=== PATIENT | male | born 1985 | race Two or more races ===

== ENCOUNTER 2017-05-26 05:50 | Day surgery (SDC) | payer OTHER ==
--- NOTE | 2017-05-25 21:28 | Pre-Procedure Note/Attestation ---
Pre-Procedure Note/Attestation Complete Prior to Procedure Planned Procedure: not applicable Procedure Narrative: 1. Open reduction internal fixation nasal fracture 2. Septoplasty 3. Submucous resection right inferior turbinate 4. Submucous resection left inferior turbinate Indications for Procedure Pre-Operative Diagnosis: 1. Nasal fracture 2. Nasal septal deviation 3. Hypertrophied right inferior turbinate 4. 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 I attest that, if there was a reasonable possibility of needing a blood transfusion, the patient (or the patient's legal sales representative girls' apparel) was given the [place] [employer] standardized written summary, pursuant to the [place]inn Blood Safety Act ([place] Health and Safety Code # 1645, as amended). I attest that I re-evaluated the patient just prior to the surgery and that there has been no change in the patient's H&P provided by Dr. Hamilton along with labs. I will co-sign his H/P. KEVIN SERRANO May 25, 2017 21:28
--- NOTE | 2017-05-25 21:30 | Brief Operative Note ---
Immediate Post Operative Note Operative Note Chief Complaint: Nasal deformity, nasal airway obstruction Pre-op Diagnosis: 1. Nasal fracture 2. Nasal septal deviation 3. Hypertrophied right inferior turbinate 4. Hypertrophied left inferior turbinate Procedure: 1. Open reduction internal fixation nasal fracture 2. Septoplasty 3. Submucous resection right inferior turbinate 4. Submucous resection left inferior turbinate Post-op Diagnosis: same as pre-op Surgeon: Kevin Serrano MD Prime Broker: none Additional Surgeons: none Anesthesiologist: Tereso Anesthesia: general Specimen: none Complications: none Condition: stable Fluids: D5LR Estimated Blood Loss: volume - 50cc Drains: none Packing: Stamberger nasal gel Implant(s) used?: No KEVIN SERRANO May 25, 2017 21:30
--- NOTE | 2017-05-25 21:34 | Discharge Instructions ---
Discharge Instructions Discharge Instructions Follow up with: 06/02/17 Diet: regular Resume Normal Activity?: No Activity: light activity Pneumonia Vaccine: pt refused vaccine Influenza Vaccine (Nov to Apr): pt refused vaccine Follow Up Orders Pt has printed instructions, along with Rx for Amox and [place], given to him at his pre op visit in my office 05/18/17. Return to Work/School on: Jun 09, 2017 Special Instructions ice to face x 48 hours For Surgical Patients Dressing Care: may change May shower: No Contact your physician for: bleeding, pain, tenderness, redness, swelling, yellowish discharge in the op. site For Congestive Heart Failure Reminder Report to your physician any weight gain of 5 pounds or more in one week. KEVIN SERRANO May 25, 2017 21:34
[2017-05-26] VITALS (11 sets, daily range): BP systolic 126–138; BP diastolic 73–93
[~2017-05-26] VITALS: Ht 165.1 cm; Wt 81.6 kg
[~2017-05-26 05:50] MED LIST: BUSPAR10 MG ORAL; CIALIS2.5 MG ORAL; KLONOPIN0.5 MG ORAL; MOBIC15 MG ORAL; REQUIP0.5 MG ORAL; ROBAXIN500 MG PO; SERTRALINE HCL100 MG PO
[2017-05-26] MEDS ORDERED: EPINEPHrine 1mg/1ml Amp ONE (06:44)
[2017-05-26] MEDS ORDERED: Cocaine HCl 4% 4ml vial TOPIC ONE (06:44)
[2017-05-26] MEDS ORDERED: Bupivacaine 0.5% Inj 30 ml vial INJ ONE (06:44)
[2017-05-26] MEDS ORDERED: Lidocaine 1% 10mg/ml/EPI 0.01mg/ml 50ml INJ ONE (06:44)
[2017-05-26] MEDS ORDERED: ceFAZolin sod 1 GM in D5W 55 ML IVPB ONE (07:45)
[2017-05-26] MEDS ORDERED: Dexamethasone 4mg/ml vial IVP ONE ×2 (07:45→09:00)
[2017-05-26] MEDS ORDERED: LR 1000ml 1,000 ML IVLG SCH ×2 (08:18→09:38)
--- NOTE | 2017-05-26 08:23 | Anethesia Preoperative Eval ---
Anesthesia Pre-op PMH/ROS General Date of Evaluation: May 26, 2017 Time of Evaluation: 07:35 Anesthesiologist: Tereso ASA Score: ASA 2 Mallampati Score Class I : Soft palate, uvula, fauces, pillars visible Class II: Soft palate, uvula, fauces visible Class III: Soft palate, base of uvula visible Class IV: Only hard plate visible Mallampati Classification: Class II Surgeon: Bc Diagnosis: Nasal fracture Surgical Procedure: ORIF, SMR, septoplasty, turbinectomies Family History: no anesthesia problems Allergies: Coded Allergies: No Known Allergies (Unverified , 05/25/17) Medications: see eMAR Past Medical History Cardiovascular: Denies: HTN, CAD, DE, valve dz, arrhythmia, other Pulmonary: Denies: asthma, COPD, ALEXIS, other Gastrointestinal/Genitourinary: Reports: GERD; Denies: CRI, ESRD, other Neurologic/Psychiatric: Reports: depression/anxiety; Denies: dementia, CVA, TIA, other Endocrine: Denies: DM, hypothyroidism, steroids, other HEENT: Denies: cataract (L), cataract (R), glaucoma, NAKNEK (L), NAKNEK (R), other Hematology/Immune: Denies: anemia, DVT, bleeding disorder, other Musculoskeletal/Integumentary: Denies: OA, RA, DJD, DDD, edema, other PMH Narrative: GERD PSxH Narrative: Multiple fractures from a 30' fall including ankle ORIF Anesthesia Pre-op Phys. Exam Physician Exam Last Vital Signs Date Time Temp Pulse Resp B/P (MAP) Pulse Ox O2 Delivery O2 Flow Rate FiO2 05/26/17 06:26 98.0 88 18 138/80 99 Room Air 98.0 Constitutional: NAD Neurologic: CN 2-12 intact Cardiovascular: RRR, no M/R/G Respiratory: CTA Gastrointestinal: S/NT/ND Airway Exam Mallampati Score: Class II MO: full ROM: full Teeth: intact Anesthesia Pre-op A/P Labs WNL Studies Pre-op Studies: EKG - NSR Risk Assessment & Plan Assessment: Healthy male for ORIF nasal fracture Plan: GA, LMA Status Change Before Surgery: No Pre-Antibiotics Drug: Ancef Given Within 1 Hr of Incision: Yes Time Given: 07:45 Luis Rider MD May 26, 2017 08:23
--- NOTE | 2017-05-26 08:25 | Immediate Post-Op Evaluation ---
Immediate Post-Op Evalulation Immediate Post-Op Evalulation Procedure: ORIF nasal fracture, septoplasty, SMR, turbinectomies Date of Evaluation: May 26, 2017 Time of Evaluation: 09:00 IV Fluids: 500 Estimated Blood Loss: 50 Blood Pressure Systolic: 136 Blood Pressure Diastolic: 83 Pulse Rate: 91 Respiratory Rate: 20 O2 Sat by Pulse Oximetry: 100 Temperature (Fahrenheit): 98.0 Pain Score (1-10): 0 Nausea: No Vomiting: No Complications No complication Patient Status: awake, patent, none Hydration Status: adequate Drug: Ancef Given Within 1 Hr of Incision: Yes Time Given: 07:45 Luis Rider MD May 26, 2017 08:25
[2017-05-26] MEDS ORDERED: Bacitracin Oint 15gm Tube TOPIC ONE (08:30)
[2017-05-26] MEDS ORDERED: Hydromorphone 0.5mg/0.5ml inj IVP PRN ×2 (08:30→09:45)
[2017-05-26] MEDS ORDERED: Midazolam 2mg/2ml Inj IVP PRN (08:30)
[2017-05-26] MEDS ORDERED: DiphenhydrAMINE 50mg/ml Inj IVP PRN ×2 (08:30→09:45)
[2017-05-26] MEDS ORDERED: Meperidine 50mg/ml Inj(FOR RIGORS ONLY) IVP ONE ×2 (08:30→09:45)
--- NOTE | 2017-05-26 09:44 | Anethesia Preoperative Eval ---
Anesthesia Pre-op PMH/ROS General Date of Evaluation: May 26, 2017 Time of Evaluation: 09:05 Anesthesiologist: Tereso ASA Score: ASA 1 Mallampati Score Class I : Soft palate, uvula, fauces, pillars visible Class II: Soft palate, uvula, fauces visible Class III: Soft palate, base of uvula visible Class IV: Only hard plate visible Mallampati Classification: Class II Surgeon: Bc Diagnosis: Nasal polyps Surgical Procedure: Endoscopic sinus surgery Family History: no anesthesia problems Allergies: Coded Allergies: No Known Allergies (Unverified , 05/25/17) Medications: see eMAR Past Medical History Cardiovascular: Denies: HTN, CAD, PA, valve dz, arrhythmia, other Pulmonary: Denies: asthma, COPD, ALEXIS, other Gastrointestinal/Genitourinary: Denies: GERD, CRI, ESRD, other Neurologic/Psychiatric: Denies: dementia, CVA, depression/anxiety, TIA, other Endocrine: Denies: DM, hypothyroidism, steroids, other PMH Narrative: Denies PSxH Narrative: Sinus surgery X3 Anesthesia Pre-op Phys. Exam Physician Exam Last Vital Signs Date Time Temp Pulse Resp B/P (MAP) Pulse Ox O2 Delivery O2 Flow Rate FiO2 05/26/17 09:35 97 18 132/91 96 Room Air 05/26/17 09:18 98.0 05/26/17 09:15 6.0 Constitutional: NAD Neurologic: CN 2-12 intact Cardiovascular: RRR, no M/R/G Respiratory: CTA Gastrointestinal: S/NT/ND Airway Exam Mallampati Score: Class II MO: full ROM: full Teeth: intact Anesthesia Pre-op A/P Labs WNL Risk Assessment & Plan Assessment: Healthy male for endoscopic nasal surgery, polypectomy Plan: GA, LMA Status Change Before Surgery: No Pre-Antibiotics Drug: Ancef Given Within 1 Hr of Incision: Yes Time Given: 09:30 Luis Rider MD May 26, 2017 09:43
--- NOTE | 2017-05-26 09:44 | Immediate Post-Op Evaluation ---
Immediate Post-Op Evalulation Immediate Post-Op Evalulation Procedure: This post op evaluation is for a different patient Spencer Caruso. Hydration Status: adequate Luis Rider MD May 26, 2017 09:44
--- NOTE | 2017-05-26 09:47 | 48 Hour Post Anesthesia Eval ---
Post Anesthesia Evaluation Procedure: ORIF nasal fracture, septoplasty, SMR, turbinectomies Date of Evaluation: May 26, 2017 Time of Evaluation: 09:30 Blood Pressure Systolic: 133 0: 78 Pulse Rate: 84 Respiratory Rate: 18 O2 Sat by Pulse Oximetry: 99 Airway: patent Nausea: No Vomiting: No Pain Intensity: 2 Hydration Status: adequate Cardiopulmonary Status: Stable Mental Status/LOC: patient returned to baseline Follow-up Care/Observations: As per surgery Post-Anesthesia Complications: No anesthetic complication Follow-up care needed: N/A Luis Rider MD May 26, 2017 09:47
[2017-05-26] MEDS ORDERED: Norco 5mg/325mg tab ORAL PRN (10:10)
[2017-05-26] MEDS ORDERED: LR 1000ml 1,000 ML IV SCH (10:17)
--- NOTE | 2017-05-26 12:15 | Operative Note - Dictated ---
DATE OF OPERATION: 05/26/2017 SURGEON: Justice Yancey M.D. BULB GRADER: None. ANESTHESIOLOGIST: Luis Rider M.D. ANESTHESIA: LMA general anesthesia and 4 mL of 4% topical cocaine placed topically on four nasal pledgets. All accounted for and removed at the end of the case. Additionally, 10 mL of 1% lidocaine and 1000 epinephrine, Marcaine 0.5% with 1:200,000 epinephrine all injected preop. INDICATION FOR SURGERY: Nasal fracture, septal fracture of the nose, hypertrophied right and left inferior turbinates secondary to an injury at work. PREOPERATIVE DIAGNOSIS: Nasal fracture, septal fracture of the nose, hypertrophied right and left inferior turbinates secondary to an injury at work. POSTOPERATIVE DIAGNOSIS: Nasal fracture, septal fracture of the nose, hypertrophied right and left inferior turbinates secondary to an injury at work. FINDINGS: Nasal fracture, septal fracture of the nose, hypertrophied right and left inferior turbinates secondary to an injury at work with a large septal spur to the left. The nose pushed off to the left with a depression on the right nasal valve. PROCEDURES: 1. Open reduction and internal fixation, nasal fracture. 2. Septoplasty. 3. Submucous resection of the right inferior turbinate. 4. Submucous resection of the left inferior turbinate. TECHNIQUE: The patient was prepped and draped in the usual manner. Time-out was performed. All agreed with the equipment and procedure to be done. Initially, I made an incision in the anterior inferior aspects of either inferior turbinate with 15 blade. Radiofrequency wand #45 was placed after coated with saline gel for 10 seconds at a setting of 6 twice in either inferior turbinate and then outfractured with a Boies elevator. This was done in both the right and left inferior turbinates. Incision was made in the left septum Khalif fashion. This was elevated subperiosteally, subchondrally with a dental elevator. I then used small angled scissors to remove the lower 4 mm of the cartilage of the septum leaving 1 cm intact inferiorly. I then removed the vomer on the left side, which have been pushed over with a gouge osteotome. This was then sewed shut with a 4-0 plain suture. I made between the cartilage incisions with a 15 blade. Elevated over the anterior nose with a scissors. I then proceeded to use a straight guarded osteotome to make a medial osteotomy and a low lateral osteotome to make lateral osteotomy. This was fractured using an Rah forceps to make sure there was no greenstick. A rasp was then utilized. The rasp smoothed out any rough edges. Skin prep and tape was placed over the nose as well as a cast. Stammberger gel one syringe placed between the two nostrils. Mustache dressing placed. Sponge and needle count correct. ESTIMATED BLOOD LOSS: 50 mL. COUNTS: None. DRAINS: None. The patient alert, awake, and stable in the operating room prior to transfer to the recovery room where I am now and he is resting comfortably. All vital signs stable. Justice Yancey M.D. DR: GINETTE JOB#: [id number] CC:
[2017-05-26] MEDS ORDERED: HYDROmorphone 1mg/ml Carpuject SUBQ PRN (15:01)
== END 2017-05-26 11:55 | disposition home or self-care (01) ==
LOC: SUR 05:50
DX: S02.2XXA Fracture of nasal bones, initial encounter for closed fracture (principal); J34.3 Hypertrophy of nasal turbinates; K21.9 Gastro-esophageal reflux disease without esophagitis; F32.9 Major depressive disorder, single episode, unspecified; F41.9 Anxiety disorder, unspecified; Z87.820 Personal history of traumatic brain injury; W17.89XA Other fall from one level to another, initial encounter; Y93.9 Activity, unspecified; Y99.0 Civilian activity done for income or pay
CPT/HCPCS: 21336; 30140; 30520; J1100; J2175; J3490; 94003; 94150